=== PATIENT | male | born 1950 | race Caucasian/White ===

== ENCOUNTER → 2017-02-05 | Outpatient (CLI) | payer BC ==
--- NOTE | 2017-02-05 12:01 | REP ---
Clinical: Abdominal aortic aneurysm. Comparison: None. Findings: Extensive atherosclerotic changes are noted throughout the aorta and common iliac arteries. Infrarenal abdominal aortic aneurysm measuring approximately 7.4 cm in craniocaudal length and 4.1 x 4.2 cm maximal diameter originates approximately 2 cm below the renal arteries and terminates approximately 1 cm above the bifurcation to common iliac arteries. No periaortic inflammatory stranding or fluid is identified. Liver, spleen, pancreas, gallbladder, and bilateral kidneys are normal. 3.5 cm left and 1.6 cm right benign adrenal adenomas are identified. The enteric system is without obstruction or acute inflammatory process. Fat containing midline ventral supraumbilical hernia is identified along with eventration / hernia with surrounding subcutaneous granulation tissue at the level of the umbilicus suggests postsurgical changes and subtle herniation. Pelvis demonstrates normal bladder and calcifications within the prostate gland. No ascites. No free air. No adenopathy. Musculoskeletal structures are intact. Impression: 1. Atherosclerotic changes to the vasculature with infrarenal abdominal aortic aneurysm as described above measuring approximately 7.4 cm in length and 4.2 cm maximal diameter. 2. Bilateral benign adrenal adenomas. 3. Chronic small to moderate ventral wall hernias. Signed by Jossue Pan MD 02/05/2017 11:53 A
== END ==
LOC: M RAD 10:29
PROVIDERS: ATTEND Surgery Vascular Surgery
DX: I71.4 Abdominal aortic aneurysm, without rupture (principal)

== ENCOUNTER → 2018-02-24 | Outpatient (CLI) | payer BC ==
--- NOTE | 2018-02-25 03:36 | REP ---
Clinical: Known abdominal aortic aneurysm. Technique: Real time feliciano scale ultrasound examination using curved array transducer. Findings: A partially thrombosed infrarenal abdominal aortic aneurysm is identified measuring 4.9 x 4.3 cm maximal diameter (patent lumen measures 2.0 x 2.2 cm maximal diameter) and 7 cm in craniocaudal length originating approximately 3 cm from the renal arteries tapering to normal at the bifurcation to common iliac arteries where the aorta measures 1.7 x 2.4 cm maximal diameter. Proximal aorta 2.3 x 2.9 cm. Mid aorta (renal artery level) 2.2 x 2.4 cm. Mid aorta 2.2 x 3.0 cm. Distal aorta 4.9 x 4.3 cm. Right common iliac artery 1.1 x 1.1 cm maximal diameter. Left common iliac artery 1.0 x 1.1 cm maximal diameter. Impression: Known infrarenal abdominal aortic aneurysm as described above. Electronically Signed by Jossue Pan MD 02/25/2018 03:28 A
== END ==
LOC: M RAD 07:25
PROVIDERS: ATTEND Surgery Vascular Surgery
DX: I71.4 Abdominal aortic aneurysm, without rupture (principal)

== ENCOUNTER → 2018-09-15 | Outpatient (CLI) | payer BC, MEDICARE ==
--- NOTE | 2018-09-16 00:33 | REP ---
Clinical: Abdominal aortic aneurysm. Comparison: 02/24/2018. Technique: Real time feliciano scale and color evaluation using curved array transducer. Findings: A partially thrombosed abdominal aortic aneurysm originating approximately 2.9 cm from the main renal arteries measures 5.1 x 5.1 cm maximal diameter with patent residual lumen measuring 1.9 x 3.5 cm diameter and 7.3 cm in craniocaudal length without extension to the common iliac arteries. (Aneurysm previously measured 4.9 x 4.3 cm diameter and 7.0 cm craniocaudal length). Proximal aorta 2.3 x 2.4 cm. Mid aorta (renal artery level) 1.6 x 2.4 cm. Mid aorta 3.4 x 4.2 cm. Distal aorta 5.1 x 5.1 cm. Right common iliac artery 1.2 cm maximal diameter. Left common iliac artery 1.3 cm maximal diameter. Impression: Partially thrombosed abdominal aortic aneurysm slightly increased from prior examination Electronically Signed by Jossue Pan MD 09/16/2018 12:24 A
== END ==
LOC: M RAD 08:34
PROVIDERS: ATTEND Surgery Vascular Surgery
DX: I71.4 Abdominal aortic aneurysm, without rupture (principal)

== ENCOUNTER → 2018-10-04 | Outpatient (CLI) | payer BC ==
--- NOTE | 2018-10-04 09:08 | REP ---
Clinical: Abdominal aortic aneurysm. Comparison: 02/05/2017. Technique: Axial noncontrast images from the thoracic inlet to the upper abdomen with coronal and sagittal re-formations. Findings: Infrarenal abdominal aortic aneurysm measures approximately 8.7 cm in craniocaudal length and a roughly 5.0 x 4.7 cm maximal diameter originating approximately 1.7 cm below the level of the main renal arteries and terminating approximately 1 cm above the bifurcation to common iliac arteries. No periaortic inflammatory changes or fluid are identified to suggest rupture or leak. Moderate partially calcified atherosclerotic changes noted through the aorta and iliac arteries. Liver, spleen, pancreas, gallbladder, and right kidney are normal. Left kidney includes 2 mm nonobstructing calculus. 3.0 cm left adrenal adenoma and 2.1 cm right adrenal adenoma identified and stable. The enteric system is without obstruction or acute inflammatory process. Scattered colonic diverticula noted without acute diverticulitis. Fat containing ventral hernia remains stable. Pelvis demonstrates normal bladder and moderately enlarged prostate gland measuring approximately 4.2 cm maximal diameter and demonstrating coarse calcifications. Calcifications involving the seminal vesicles also noted suggesting underlying diabetes. No ascites. No free air. No adenopathy. Lung bases demonstrate mild/early moderate COPD type changes. Impression: 1. Infrarenal abdominal aortic aneurysm may be slightly increased when compared to prior examination. 2. Stable bilateral adrenal adenomas. 3. 2 mm nonobstructing left renal calculus. 4. Stable fat-containing ventral hernia. 5. Few scattered sigmoid diverticula without acute diverticulitis. 6. Mild/early COPD type changes at the lung bases. Electronically Signed by Jossue Pan MD 10/04/2018 08:59 A
== END ==
LOC: M RAD 08:03
PROVIDERS: ATTEND Physician Assistant
DX: I71.4 Abdominal aortic aneurysm, without rupture (principal)

== ENCOUNTER 2018-11-18 08:19 | Inpatient (IN) | payer BC ==
[~2018-11-18] VITALS: Ht 172.7 cm; Wt 83.1 kg
[~2018-11-18 08:19] MED LIST: ASPI81TA85 PO; BUPR150T3 PO; BYDU1INJ SC; LISI10TA4 PO; LR 1,000 ML IV ONE; METF10004 PO; ROSU20TA5 PO; TOPR25TA PO; UROX1TAB8 PO; ZOLO50TA PO
[2018-11-18] MEDS ORDERED: LIDOCAINE 2% MDV 20 ML VIAL As Ordered ONE (13:16)
[2018-11-18] MEDS ORDERED: BUPIVACAINE HCL 0.5% 30 ML VIAL As Ordered ONE (13:16)
[2018-11-18] MEDS ORDERED: ISOVUE-300 61% 50ML VIAL (Q9967) As Ordered ONE ×2 (13:16→15:29)
[2018-11-18] MEDS ORDERED: HEPARIN SOD (PORCINE) 5000 UNITS/ML VIAL As Ordered ONE ×3 (13:16→14:55)
[2018-11-18] MEDS ORDERED: PROPOFOL 200 MG/20 ML VIAL As Ordered ONE ×4 (13:56→15:42)
[2018-11-18] MEDS ORDERED: ROCURONIUM BROMIDE 50 MG/5 ML VIAL As Ordered ONE ×2 (13:56→13:59)
[2018-11-18] MEDS ORDERED: fentaNYL 250 MCG/5 ML INJECTION (J3010) As Ordered ONE (13:56)
[2018-11-18] MEDS ORDERED: MIDAZOLAM INJ 2 MG/2 ML VIAL (J2250) As Ordered ONE (13:57)
--- NOTE | 2018-11-18 14:36 | CR.PDOC ---
General Date of Consultation: Nov 18, 2018 Attending Physician: Nino Shahid MD Consultation Vascular Surgery Dr Shahid. HPI: 68year oldM with h/o AAA with plan for EVAR as per Dr Shahid 11/18/18. Also, please see Pre operative clearance with EKG as per Nadir Jhaveri PLASTIC PANEL INSTALLER placed on chart. Denies any recent illness. Denies any fevers, chills, weakness, fatigue, Headache, Chest Pain, Shortness of breath, cough, palpitations, abdominal pain, N/V/D or changes in bowel or bladder habits. PMHx: AAA HTN NIDDM HTN HLD Anxiety/Depression BPH H/O bladder CA PSHX: tonsillectomy appendectomy ventral hernia repair sigmoidectomy/enterovesicular fistula repair. SOCHX: Tobacco use: former smoker ETOH: denies FAMHX: CAd, OR, HTN, pancreatic CA ROS: As noted in HPI, otherwise 11pt ROS of systems reviewed and unremarkable. PE: GEN: 68yoM, appears stated age. No acute distress. Alert and oriented x 3. Pleasant, interactive. HEENT: Normocephalic, atraumatic. Moist mucous membranes. D CHEST: Regular rate and rhythm, +S1, +S2 LUNGS: Clear to auscultation bilaterally. No wheezes, rales, or rhonchi. ABD: Round, soft, non-tender, non-distended. +Bowel sounds throughout. No r ebound or guarding. No pulsatile masses, no bruit noted. EXT: Pulses 2+ bilaterally dorsalis pedis and radial. No lower extremity edema appreciated. SKIN: [place], dry, warm. Capillary refill <2sec. No rashes. NEURO: Alert and oriented x 3. Cranial nerves III-XII are intact. No focal deficits appreciated. CT 09/23 Findings: Infrarenal abdominal aortic aneurysm measures approximately 8.7 cm in craniocaudal length and a roughly 5.0 x 4.7 cm maximal diameter originating approximately 1.7 cm below the level of the main renal arteries and terminating approximately 1 cm above the bifurcation to common iliac arteries. No periaortic inflammatory changes or fluid are identified to suggest rupture or leak. A&P: 1. AAA/ EVAR planned as per Dr Shahid 11/18/18. Plan for OR this PM as per Dr Shahid. ASA 81 mg as outpt. Plan to admit to Hospitalist for medical mgmt. HTN Lisinopril/metoprolol. HLD. Statin. NIDDM. NPO. metformin on Hold Vital Signs/I&O Vital Signs Date Time Temp Pulse Resp B/P (MAP) Pulse Ox O2 Delivery O2 Flow Rate FiO2 11/18/18 08:53 96.8 79 20 111/75 (87) 93 Laboratory Data Labs 24H Laboratory Tests 2 11/18/18 09:09: Bedside Glucose ([facility] [place] Panel) 126H Allergies Coded Allergies: Penicillins (Verified Allergy, Intermediate, SKIN RASH, HIVES, 11/04/18) terbinafine (Verified Adverse Reaction, Intermediate, ABDOMINAL PAIN, 11/04/18) Home Medications Scheduled Alfuzosin HCl (Uroxatral) 10 Mg Tab.er.24h, 10 MG PO DAILY, (Reported) Aspirin (Aspir 81) 81 Mg Tablet.dr, 81 MG PO DAILY, #30 (Reported) Bupropion Hcl (Bupropion Xl) 150 Mg Tab.er.24h, 150 MG PO DAILY, (Reported) Exenatide Microspheres (Bydureon) 2 Mg/0.65 Ml Pen.injctr, 2 MG SC QWEEK, (Reported) Lisinopril (Lisinopril) 10 Mg Tablet, 10 MG PO DAILY, (Reported) Metformin HCl (Metformin HCl) 1,000 Mg Tablet, 1,000 MG PO DAILY, (Reported) Metoprolol Succinate (Toprol Xl) 25 Mg Tab.er.24h, 25 MG PO DAILY, (Reported) Rosuvastatin Calcium (Rosuvastatin Calcium) 20 Mg Tablet, 20 MG PO DAILY, (Reported) Miscellaneous Medications Sertraline Hcl (Zoloft) 50 Mg Tablet, 50 MG PO, (Reported) Attending Note Attending Note VASCULAR SURGICAL ATTENDING NOTE: Dr. Nabeel Shahid M.D. ASSESSMENT: 68-year-old male with asymptomatic abdominal aortic aneurysm which measures 5 cm who was evaluated and recommendation was to undergo endovascular abdominal aortic aneurysm repair. PLAN: Patient will undergo an endovascular abdominal aortic aneurysm repair with possible open abdominal aortic aneurysm repair. Sy Cobian was the attending vascular surgeon for this patient encounter. The patient was seen, examined, interviewed and evaluated independently by Dr. Eden Shahid M.D. was fully available during the consultation evaluation. All aspects of the patient interview, examination, medical decision making process, and medical care plan development were reviewed and approved by Dr. Eden Shahid M.D. Dr. Eden Shahid M.D. is aware and concurs with the plan as stated in the body of this note and will attest to such by his/her cosignature. Attending Note Attending Note VASCULAR SURGICAL ATTENDING NOTE: Dr. Nabeel Shahid M.D. ASSESSMENT: Patient is a 68-year-old male with a 5 cm abdominal aortic aneurysm which is asymptomatic and amenable to endovascular abdominal aortic aneurysm repair. PLAN: She will undergo an endovascular abdominal aortic aneurysm repair. Sy Cobian was the attending vascular surgeon for this patient encounter. The patient was seen, examined, interviewed and evaluated independently by Dr. Eden Shahid M.D. was fully available during the consultation evaluation. All aspects of the patient interview, examination, medical decision making process, and medical care plan development were reviewed and approved by Dr. Eden Shahid M.D. is aware and concurs with the plan as stated in the body of this note and will attest to such by his/her cosignature. Ivon Martinez Nov 18, 2018 14:28 Nino Shahid MD Nov 24, 2018 18:07
[2018-11-18 15:45] LABS: BLOOD UREA NITROGEN 15 MG/DL (7-18); CALCIUM LEVEL 8.7 MG/DL (8.8-10.2); CARBON DIOXIDE LEVEL 26 MEQ/L (21-32); CHLORIDE LEVEL 108 MEQ/L (98-107); CREATININE FOR GFR 0.73 MG/DL (0.70-1.30); GLOMERULAR FILTRATION RATE > 60.0 (>49); GLUCOSE, FASTING 99 MG/DL (70-100); POTASSIUM SERUM 4.2 MEQ/L (3.5-5.1); SODIUM LEVEL 140 MEQ/L (136-145)
[2018-11-18] MEDS ORDERED: hydrALAZINE INJ 20 MG/ML VIAL As Ordered ONE (16:05)
[2018-11-18] MEDS ORDERED: ESMOLOL INJ 100MG/10ML VIAL As Ordered ONE (16:14)
[2018-11-18] MEDS ORDERED: LABETALOL HCL 100 MG/20 ML VIAL As Ordered ONE (16:29)
[2018-11-18] MEDS ORDERED: THROMBIN SOLN 20,000 UNITS KIT As Ordered ONE (16:39)
[2018-11-18] MEDS ORDERED: PROTAMINE SULF INJ 50 MG/5 ML VIAL (J2720) As Ordered ONE (16:46)
[2018-11-18] MEDS ORDERED: ACETAMINOPHEN TAB 650MG DOSE (2X325MG) PO PRN (17:15)
[2018-11-18] MEDS ORDERED: ONDANSETRON 4MG/2ML VIAL (J2405) IV PRN (17:45)
[2018-11-18] MEDS ORDERED: LR 1,000 ML IV SCH (17:45)
[2018-11-18 18:00] VITALS: BP 144/67
[2018-11-18] MEDS: PERCOCET 5MG/325MG TAB PO PRN ×2 (18:11→18:40)
[2018-11-18] MEDS: fentaNYL 100 MCG/2 ML INJECTION (J3010) IV PRN ×2 (18:11→18:16)
[2018-11-18 20:00] VITALS: BP 103/52
[2018-11-18] MEDS: NORCO, ANEXSIA 5/325MG TABLET (HYDROcodone/ACETAMINOPHEN) PO PRN (20:00)
[2018-11-18] MEDS ORDERED: ROSUVASTATIN 10 MG TAB (CRESTOR) PO SCH (21:00)
[2018-11-19] VITALS (9 sets, daily range): BP systolic 111–146; BP diastolic 56–78; O2SAT 89–94
[2018-11-19] MEDS: NORCO, ANEXSIA 5/325MG TABLET (HYDROcodone/ACETAMINOPHEN) PO PRN ×3 (02:11→11:48)
[2018-11-19] MEDS ORDERED: LISINOPRIL 10 MG TAB PO SCH (09:00)
[2018-11-19] MEDS ORDERED: SERTRALINE HCL 50 MG TAB PO SCH (09:00)
[2018-11-19] MEDS ORDERED: buPROPion **XL** TABLET 150MG (WELLBUTRIN XL) PO SCH (09:00)
[2018-11-19] MEDS ORDERED: METOPROLOL SUCC *XL* 25MG TAB (TopROL *XL*) PO SCH (09:00)
[2018-11-19] MEDS ORDERED: ASPIRIN 81 MG ENTERIC TAB PO SCH (09:00)
[2018-11-19] MEDS ORDERED: metFORMIN (GLUCOPHAGE) 1000 MG TABLET PO SCH (18:00)
[2018-11-19] MEDS ORDERED: HYDR-4571 PO (18:17)
--- NOTE | 2018-11-24 17:59 | ROOPDOC ---
[facility] Report Of Operation Report of Operation DATE OF PROCEDURE: 11/18/2018 PREOPERATIVE DIAGNOSES: 5 cm abdominal aortic aneurysm. POSTOPERATIVE DIAGNOSES: 5 cm abdominal aortic aneurysm. PROCEDURE: Bilateral common femoral arterial exposures Endovascular abdominal aortic aneurysm repair with a 28 x 14 x 1 03 bifurcated modular Endurant endograft Left iliac limb extension with a 16-10 x 1 24 tapered Endurant iliac limb Right iliac limb extension with a 16-16 x 93 Endurant iliac limb Bilateral common iliac limb angioplasty with 10 mm x 80 mm balloons SURGEON: Dr. Nabeel Shahid M.D. COMMERCIAL INSTRUCTOR SUPERVISOR: None INDICATION: Patient is a 68-year-old male who was found to have a 5 cm abdominal aortic aneurysm who was evaluated and felt to be a good candidate for an endovascular abdominal aortic aneurysm repair. The procedure was described and explained in detail to the patient including drawing of pictures demonstrating the procedure and pertinent anatomy. Risks, benefits and alternative treatment options were discussed with the patient. Alternative treatment options included but were not limited to no intervention. Benefits include but were not limited to repair of the aneurysm to prevent rupture and . Risks included but were not limited to infection, bleeding, renal failure requiring hemodialysis, retroperitoneal hematoma, possible need for surgical intervention, possible need for conversion to open abdominal aortic aneurysm repair, possible requirement for transfusion of blood products, contrast dye reaction, allergic reaction and/or complication from the prepping and draping materials, sedation related complication, scarring of the skin, bruising, nerve injury, anesthetic complications, cerebrovascular accident, myocardial infarction, pulmonary embolus, deep venous thrombosis, loss of limb, loss of life, poor satisfaction and poor outcome. Risks of not performing the procedure included but were not limited to increasing size of the aneurysm with possible rupture and . Patient's questions were answered. Patient voices understanding of these risks, benefits and alternative treatment options. Sherlyn ent voices acceptance of the risks associated with endovascular abdominal aortic aneurysm repair and agrees to proceed with the procedure excepting the associated risks of the procedure. No guarantees or promises were made to the patient or his family regarding the results or outcome of the procedure. ANESTHESIA: Local with Mac ESTIMATED BLOOD LOSS: 250 mL. IV FLUIDS: 600 mL. HEPARIN: 7000 units followed by an additional 2000 unit bolus PROTAMINE: 50 mg FLUORO TIME: 9 minutes 54 seconds CONTRAST: 27.5 mL of Isovue 300 COMPLICATIONS: None DRAINS: None SPECIMENS: None IMPLANTS: Endurant bifurcated graft and to iliac limbs PROCEDURE: The patient was taken to the operating room, placed supine on the operating room table and prepped and draped in a standard surgical fashion. A procedural time out was performed by myself and the members of the team in the procedure room confirming the correct procedure, patient and laterality. The bilateral common femoral arterial exposures were performed through oblique incisions in the inguinal region. The common femoral arteries were sharply dissected proximally and distally and then encircled with vessel loops. The common femoral arteries were then cannulated with 18-gauge entry needle is then Leung wire's and 7 English sheaths were placed. A catheter was advanced into the aorta and an aortogram was performed demonstrating the position of the renal arteries. The bifurcated graft was then brought over a stiff wire through the right femoral approach and deployed below the level of the renal arteries with serial aortograms performed to confirm infrarenal positioning which was noted. The contralateral limb was then cannulated through the left femoral approach and a marking pigtail spun within the graft to ensure intra-graft positioning which was noted. The left iliac limb was then extended down to the bifurcation of the external and internal iliac arteries with a 16-10 x 124 iliac limb. The remainder of the graft was deployed after which the right iliac limb was extended down to the bifurcation of the external and internal iliac arteries using a 16-16 x 93 iliac limb. Both common iliac artery limbs were then angioplastied with 10 x 8 [place] balloon simultaneously. Prior to angioplasty the common iliac limbs the graft in both limbs were angioplastied with a reliant compliant balloon. A completion aortogram was performed showing the renal arteries to fill with good flow through the graft into both iliac limbs with widely patent external/internal iliac limbs. The sheath and wires were removed and the arteriotomies closed using 6-0 Prolene suture in running continuous fashion. Flow was confirmed through the arteriotomy sites using Doppler ultrasound. Hemostasis was then obtained using thrombin and Gelfoam. The incisions were then closed using 2-0 Vicryl to approximate the deeper layers and 3-0 Monocryl to approximate the skin in a running subcuticular fashion. Steri- Strips were applied. Dressings were then applied. Patient tolerated the procedure well. All instrument, sponge and needle counts were correct at the end of the case. There were no complications. Dr. Shahid was present for and directed the entire case. The patient was transferred to the recovery room in stable condition. The results and findings of the procedure were discussed with the patient and his with all their questions being answered. Nino Shahid MD Nov 24, 2018 17:59
--- NOTE | 2018-11-24 18:04 | DS.PDOC ---
Discharge Summary General Date of Admission Nov 18, 2018 at 08:19 Date of Discharge 11/19/2018 Attending Physician: Nino Shahid MD Discharge Summary PROCEDURES PERFORMED DURING STAY: Endovascular abdominal aortic aneurysm repair. ADMITTING DIAGNOSES: 1. 5 cm abdominal aortic aneurysm. DISCHARGE DIAGNOSES: 1. 5 cm abdominal aortic aneurysm. COMPLICATIONS/CHIEF COMPLAINT: Abdominal Aortic Aneurysm. HISTORY OF PRESENT ILLNESS: Patient is a 68-year-old male who was found to have a 5 cm abdominal aortic aneurysm who was evaluated and recommended to undergo endovascular abdominal aortic aneurysm repair. HOSPITAL COURSE: Patient was admitted on November 18 and underwent endovascular abdominal aortic aneurysm repair without complication. Patient was admitted to the hospital post operatively. Patient did well overnight and on postop day 1 patient was stable and ready for discharge home. DISCHARGE MEDICATIONS: Please see below. ALLERGIES: Please see below. PHYSICAL EXAMINATION ON DISCHARGE: VITAL SIGNS: Please see below. GENERAL: No apparent distress HEENT: Normal NECK: Normal CARDIOVASCULAR EXAMINATION: Regular rate and rhythm RESPIRATORY EXAMINATION: Clear to auscultation bilaterally ABDOMINAL EXAMINATION: Soft nontender nondistended EXTREMITIES: Warm and well-perfused SKIN: Warm and well-perfused NEUROLOGICAL EXAMINATION: Awake, alert and oriented 3 with no focal neurologic deficits. PSYCHIATRIC EXAMINATION: Normal LABORATORY DATA: Please see below. IMAGING: None PROGNOSIS: Excellent ACTIVITY: As tolerated with no heavy lifting of more than 5 pounds 2 weeks. DIET: Resume previous diet DISCHARGE PLAN: Patient will be discharged to home DISPOSITION: 01 Home, Self-Care. DISCHARGE INSTRUCTIONS: 1. Patient may shower. 2. Patient will follow-up in the office in 7-10 days. DISCHARGE CONDITION: Stable. TIME SPENT ON DISCHARGE: Greater than 30 minutes. Vital Signs/I&Os Vital Signs Date Time Temp Pulse Resp B/P (MAP) Pulse Ox O2 Delivery O2 Flow Rate FiO2 11/19/18 12:18 16 11/19/18 12:00 97.3 61 111/62 (78) 97 2.0 11/19/18 11:00 Room Air Discharge Medications Scheduled Alfuzosin HCl (Uroxatral) 10 Mg Tab.er.24h, 10 MG PO DAILY, (Reported) Aspirin (Aspir 81) 81 Mg Tablet.dr, 81 MG PO DAILY, (Reported) Bupropion Hcl (Bupropion Xl) 150 Mg Tab.er.24h, 150 MG PO DAILY, (Reported) Exenatide Microspheres (Bydureon) 2 Mg/0.65 Ml Pen.injctr, 2 MG SC QWEEK, (Reported) Lisinopril (Lisinopril) 10 Mg Tablet, 10 MG PO DAILY, (Reported) Metformin HCl (Metformin HCl) 1,000 Mg Tablet, 1,000 MG PO DAILY, (Reported) Metoprolol Succinate (Toprol Xl) 25 Mg Tab.er.24h, 25 MG PO DAILY, (Reported) Rosuvastatin Calcium (Rosuvastatin Calcium) 20 Mg Tablet, 20 MG PO DAILY, (Reported) Miscellaneous Medications Sertraline Hcl (Zoloft) 50 Mg Tablet, 50 MG PO, (Reported) Allergies Coded Allergies: Penicillins (Verified Allergy, Intermediate, SKIN RASH, HIVES, 11/04/18) terbinafine (Verified Adverse Reaction, Intermediate, ABDOMINAL PAIN, 11/04/18) Nino Shahid MD Nov 24, 2018 18:04
== END 2018-11-19 15:05 | disposition home or self-care (01) | DRG 182 ==
LOC: M OR 08:19 → M PCU 18:43
PROVIDERS: ADMIT Surgery Vascular Surgery; ATTEND Surgery Vascular Surgery
PROC: 04V03DZ Restriction of Abdominal Aorta with Intraluminal Device, Percutaneous Approach (ICD-10-PCS; principal; 2018-11-18 11:30)
DX: I71.4 Abdominal aortic aneurysm, without rupture (principal); I10 Essential (primary) hypertension; E11.9 Type 2 diabetes mellitus without complications; E78.5 Hyperlipidemia, unspecified; F41.9 Anxiety disorder, unspecified; F32.9 Major depressive disorder, single episode, unspecified; N40.0 Benign prostatic hyperplasia without lower urinary tract symptoms; Z85.51 Personal history of malignant neoplasm of bladder; Z87.891 Personal history of nicotine dependence; Z79.84 Long term (current) use of oral hypoglycemic drugs; Z79.899 Other long term (current) drug therapy

== ENCOUNTER → 2018-12-30 | Outpatient (CLI) | payer BC, MEDICARE ==
[~2018-12-30] MED LIST changes: +HYDR-4571 PO; -LR 1,000 ML IV ONE
--- NOTE | 2018-12-30 22:54 | REP ---
ULTRASOUND ABDOMINAL AORTA: Real-time sonographic evaluation of the abdominal aorta performed and compared to prior CT 10/04/2018 and ultrasound 09/15/2018. Since the prior exams, aortobiiliac stent has been placed. This appears patent. The study is somewhat limited due to overlying bowel gas. Within the distal aortic graft, peak systolic velocities range between 40 cm/s and 49.4 cm/s. Velocity in the right iliac limb 49.4 cm/s and left iliac limb 55.8 cm/s. Maximum AP dimension of the proximal abdominal aorta is 2.4 cm, at the renal artery it is 2.7 cm and mid aspect 2.5 cm and distally just above the bifurcation 3.7 cm. The maximum AP diameter of the abdominal aortic aneurysm is 4.7 cm, which is slightly less than was measured on the prior ultrasound 5.1 cm. The aneurysm extends for a length of approximately 9 cm and appears to begin about 3 cm distal to the renal artery origins. IMPRESSION: Patent aortobiiliac stent. Fusiform distal abdominal aortic aneurysm is measuring slightly less than on the prior study with maximum AP diameter 4.7 cm. Electronically Signed by Alfred Diego MD 12/31/2018 03:37 P
== END ==
LOC: M RAD 15:07
PROVIDERS: ATTEND Physician Assistant
DX: I71.4 Abdominal aortic aneurysm, without rupture (principal)

== ENCOUNTER → 2019-01-11 | Outpatient (CLI) | payer BC ==
[~2019-01-11] MED LIST changes: +ISOVUE-370 76% 100ML VIAL (Q9967) As Ordered ONE
--- NOTE | 2019-01-12 14:14 | REP ---
Clinical: Abdominal aortic aneurysm. Technique: Axial arterial phase angiographic images of the abdomen from the lung bases through the mid iliac bone to include the aortoiliac bifurcation. Coronal and sagittal re-formations as well as 3-D MIP reconstructions obtained. 100 ml Isovue 370 intravenous contrast material administered without complication. Comparison: 09/17/2018. Findings: The patient has subsequently undergone aortobi-iliac stent graft placement to exclude the infrarenal abdominal aortic aneurysm. Flow is identified through the stent into the bilateral common iliac arteries without obvious extravasation into the excluded aneurysm which remains relatively stable at 4.6 x 5.1 cm maximal diameter. Calcified atherosclerotic changes to the aorta and branch vessels remains stable. Satisfactory enhancement to the celiac axis, superior mesenteric artery, and bilateral renal arteries noted. Fatty infiltration to the liver suggested. Spleen, pancreas, gallbladder, and kidneys appear normal. Stable bilateral adrenal adenomas again noted. The enteric system is without obstruction or acute inflammatory process. Midline ventral hernia containing fat remains stable. No ascites. No free air. No adenopathy. Musculoskeletal structures demonstrate age-related changes without abnormality. The lung bases are clear. Impression: 1. Aorto-iliac stent graft now identified with satisfactory intraluminal flow and exclusion to the surrounding the aneurysm which remain stable. 2. Hepatic steatosis. Electronically Signed by Jossue Pan MD 01/12/2019 02:05 P
== END ==
LOC: M RAD 16:53
PROVIDERS: ATTEND Physician Assistant
DX: K76.0 Fatty (change of) liver, not elsewhere classified (principal); I71.4 Abdominal aortic aneurysm, without rupture
CPT/HCPCS: 74175; Q9967

== ENCOUNTER → 2019-08-22 | Outpatient (CLI) | payer BC ==
[~2019-08-22] MED LIST changes: -ISOVUE-370 76% 100ML VIAL (Q9967) As Ordered ONE
== END ==
LOC: M RAD 13:48
PROVIDERS: ATTEND Physician Assistant
DX: I71.4 Abdominal aortic aneurysm, without rupture (principal)

== ENCOUNTER → 2019-08-28 | Outpatient (CLI) | payer BC ==
[~2019-08-28] MED LIST changes: +ISOVUE-370 76% 100ML VIAL As Ordered ONE
--- NOTE | 2019-08-28 12:20 | REP ---
CT ANGIOGRAPHY ABDOMINAL AORTA AND PELVIS WITH IV CONTRAST: HISTORY: Abdominal aortic aneurysm. COMPARISON STUDY: January 11, 2019. CT CONTRAST DOSE: 100 mL of intravenous Isovue 370 is administered. NONVASCULAR FINDINGS. There are low-density lesions in the adrenal glands bilaterally consistent with adenomas. These are unchanged. The largest is on the left measuring 3.4 cm in greatest diameter. There appears to be mild fatty infiltration of the liver. A tiny accessory splenule is noted. There is a ventral hernia in the epigastric region of the abdominal wall a which appears post repair. There are dystrophic calcifications in the prostate and seminal vesicles. There are surgical clips in the pelvis and left pericolic gutter post colon resection. The appendix is surgically absent. CT ANGIOGRAPHIC FINDINGS: There is an aortobi-iliac stent graft again noted in place. There is no evidence of Endo leak. No change and stent graft or line position. The abdominal aortic aneurysm is less prominent than it was on January 11, 2019 measuring 4.6 x 3.6 cm in AP x transverse dimension today, previously 5.0 x 4.6 cm by my measurements. No vicky aneurysmal disease is seen. There is no evidence of Endo leak. There is vascular calcification in the external and internal iliac arteries bilaterally but no occlusion is seen. Celiac, superior mesenteric and renal arteries remain patent as before. IMPRESSION: The abdominal aortic aneurysm has decreased in size in the interval since the last study January 11, 2019. The patient status post aortobi-iliac stent graft repair. Electronically Signed by Vahid Ford MD 08/28/2019 05:03 P
== END ==
LOC: M RAD 08:36
PROVIDERS: ATTEND Physician Assistant
DX: I71.4 Abdominal aortic aneurysm, without rupture (principal)
CPT/HCPCS: 74174; Q9967